=== PATIENT | female | born 1950 | race Caucasian/White ===

== ENCOUNTER 2021-09-28 12:34 | Emergency (ER) | payer BC, MEDICAID, OTHER ==
[~2021-09-28] VITALS: Ht 152.4 cm; Wt 65.8 kg
--- NOTE | 2021-09-28 12:46 | NUR ---
CALLED TO TRIAGE NO ANSWER
[2021-09-28 12:57] VITALS: BP 127/95
[2021-09-28] MEDS ORDERED: IBUP-2213 PO (14:38)
[2021-09-28] MEDS ORDERED: DICL100G5 TP (14:38)
[2021-09-28] MEDS ORDERED: ACET-8386 PO ×3 (14:38→15:05)
[2021-09-28] MEDS ORDERED: MULT-1305 PO (15:03)
--- NOTE | 2021-09-28 15:34 | NUR ---
Patient discharged with v/s stable. Written and verbal after care instructions given. Patient alert, oriented and verbalized understanding of instructions. Ambulatory with steady gait. All questions addressed prior to discharge. ID band removed. Patient advised to follow up with PMD. Rx of Hydrocodone-Acetaminophen, Diclofenac Sodium, Ibuprofen and Multivitamin with Minerals given. Opportunity to ask questions provided and answered.
--- NOTE | 2021-09-28 15:35 | NUR ---
PT SEEN BY DR RUBI, NO NURSING INTERVENTIONS PROVIDED
== END 2021-09-28 15:34 | disposition home or self-care (01) ==
LOC: MED 12:34
DX: G62.9 Polyneuropathy, unspecified (principal); Z79.899 Other long term (current) drug therapy
CPT/HCPCS: 82948; 99283